=== PATIENT | male | born 2000 | race Caucasian/White ===

== ENCOUNTER 2023-02-24 08:05 | Day surgery (SDC) | payer BC ==
[~2023-02-24 08:05] MED LIST: Acetaminophen 1,000 MG in Premix Bag 1 BAG IV SCH; Lactated Ringers 1,000 ML IV SCH; Pregabalin 75 MG Cap PO SCH; ceFAZolin 2 GM in Sodium Chloride 0.9% 50 ML IV ONE
[2023-02-24] MEDS ORDERED: droPERidol 5 MG/2 ML SDV IVPUSH PRN ×2 (09:22→09:23)
[2023-02-24] MEDS ORDERED: Metoclopramide 10 MG/2 ML SDV IVPUSH PRN ×2 (09:22→09:23)
[2023-02-24] MEDS ORDERED: Ondansetron 4 MG/2 ML SDV IVPUSH PRN ×2 (09:22→09:23)
[2023-02-24] MEDS ORDERED: fentaNYL 50 MCG/ML SDV IVPUSH PRN ×2 (09:22→09:23)
[2023-02-24] MEDS ORDERED: HYDROmorphone 1 MG/ML Syringe IVPUSH PRN ×2 (09:22→09:23)
[2023-02-24] MEDS ORDERED: Albuterol 0.083% 2.5 MG/3 ML Neb Soln NEB PRN ×2 (09:22→09:23)
[2023-02-24] MEDS ORDERED: Morphine 2 MG/ML SYRINGE IVPUSH PRN ×2 (09:22→09:23)
[2023-02-24] MEDS ORDERED: Naloxone 0.4 MG/ML SDV IVPUSH PRN ×2 (09:22→09:23)
[2023-02-24] MEDS ORDERED: Bupivacaine 25%/EPINEPHrine/PF 30 ML ONE (09:51)
[2023-02-24] MEDS ORDERED: Ropivacaine 0.5% 5 MG/ML 30 ML SDV ONE (09:51)
[2023-02-24] MEDS ORDERED: fentaNYL 100 MCG/2 ML SDV ONE ×2 (10:41→11:25)
[2023-02-24] MEDS ORDERED: Lidocaine 2% 5 ML SDV ONE (10:41)
[2023-02-24] MEDS ORDERED: Rocuronium Bromide 50 MG/5 ML Syringe ONE (10:41)
[2023-02-24] MEDS ORDERED: Sugammadex Sodium 200 MG/2 ML VIAL ONE (10:41)
[2023-02-24] MEDS ORDERED: Propofol 200 MG/20 ML SDV ONE (10:41)
[2023-02-24] MEDS ORDERED: Dexamethasone 4 MG/ML 5 ML MDV ONE (10:41)
[2023-02-24] MEDS ORDERED: ceFAZolin 2 GM Vial ONE (10:41)
[2023-02-24] MEDS ORDERED: Ondansetron 4 MG/2 ML SDV ONE (10:41)
[2023-02-24] MEDS ORDERED: Bupivacaine 0.5% 30 ML SDV ONE (10:50)
[2023-02-24] MEDS ORDERED: Ketorolac 30 MG/ML SDV ONE (12:08)
== END 2023-02-24 15:00 | disposition home or self-care (01) ==
LOC: MW.SDS 08:05
PROVIDERS: ATTEND Surgery
DX: K42.9 Umbilical hernia without obstruction or gangrene (principal); F17.210 Nicotine dependence, cigarettes, uncomplicated; E66.9 Obesity, unspecified; Z68.30 Body mass index [BMI] 30.0-30.9, adult
CPT/HCPCS: 49593; A9270; J0131; J0690; J1100; J1170; J1885; J2405; J2704; J2795; J3010; J3490; J7120